=== PATIENT | female | born 2000 | race Caucasian/White ===

== ENCOUNTER → 2020-10-13 15:44 | Outpatient (CLI) | payer OTHER, SELFPAY ==
[2020-10-13 17:36] LABS: Hematocrit 38.6 % (36-46); Hemoglobin 12.8 g/dL (12.0-16.0); Mean Corpuscular HGB Conc 33.2 % (30-36); Mean Corpuscular Hemoglobin 28.7 PG (26-34); Mean Corpuscular Volume 86.5 fL (80-100); Platelet Count 223 X10^3/uL (150-400); Red Blood Cell Count 4.47 X10^6/uL (4.0-5.2); White Blood Cell Count 8.8 X10^3/uL (4.5-11.0)
[2020-10-13 18:05] LABS: Vitamin D 25 Hydroxy (D3) 38.3 ng/mL (30.0-100.0)
[2020-10-13 18:19] LABS: TSH w/ Reflex to FT4 0.92 uIU/mL (0.47-4.68)
== END ==
PROVIDERS: PCP Registered Nurse Diabetes Educator; Referring Provider Registered Nurse Diabetes Educator; Visit Provider Registered Nurse Diabetes Educator
DX: F32.9 Major depressive disorder, single episode, unspecified (principal); F41.9 Anxiety disorder, unspecified
CPT/HCPCS: 36415; 82306; 84443; 85027

== ENCOUNTER → 2021-05-28 17:08 | Outpatient (CLI) | payer OTHER, SELFPAY ==
[2021-05-28 20:09] LABS: HCG Quantitative /Beta subunit 33913 mIU/mL
== END ==
PROVIDERS: PCP Registered Nurse Diabetes Educator; Referring Provider Obstetrics & Gynecology; Visit Provider Obstetrics & Gynecology
DX: N91.2 Amenorrhea, unspecified (principal); Z97.5 Presence of (intrauterine) contraceptive device
CPT/HCPCS: 36415; 84702

== ENCOUNTER → 2021-06-05 12:38 | Outpatient (CLI) | payer OTHER, SELFPAY ==
--- NOTE | 2021-06-05 12:39 | DI.US.S_ITS ---
PROCEDURE: US OB <= 14 WEEKS FETUS INDICATIONS: Dating and Viability, IUD placement Check OUTSIDE/PRIOR DATING DATA: Last menstrual period (LMP): Not known LMP-based estimated date of delivery (CANELO): Not applicable First dating scan (date and location): June 05, 2021 Estimated date of delivery (CANELO) from first dating scan: 12/13/2021 The calculations are made using the ultrasound CANELO of December 13, 2021 TECHNIQUE: Real-time scanning was performed of the fetus and maternal pelvic organs, with image documentation. Endovaginal scanning was also performed to better visualize the fetus and maternal ovaries. COMPARISON: None. FINDINGS: Embryo: Single living intrauterine identified. crown-rump length measures 6.2 centimeters corresponding to ultrasound estimated gestational age of 12 weeks 5 days. Heart rate: 168 beats per minute. Maternal organs: Ovaries are sonographically normal. Intrauterine device not well visualized and cannot be definitively localized. IMPRESSION: 1. Single living intrauterine with ultrasound estimated gestational age of 12 weeks 5 days corresponding to ultrasound CANELO of December 13, 2021. 2. Maternal intrauterine device not well visualized and cannot be definitively localized. Dictated by: Diane Hutchins MD, PhD on 06/05/2021 at 17:29 Approved by: Diane Hutchins MD, PhD on 06/05/2021 at 17:31
== END ==
PROVIDERS: PCP Registered Nurse Diabetes Educator; Referring Provider Obstetrics & Gynecology; Visit Provider Obstetrics & Gynecology
DX: Z36.87 Encounter for antenatal screening for uncertain dates (principal); Z3A.12 12 weeks gestation of pregnancy; Z97.5 Presence of (intrauterine) contraceptive device
CPT/HCPCS: 76801; 76817

== ENCOUNTER → 2021-06-26 14:44 | Outpatient (CLI) | payer OTHER, SELFPAY ==
[2021-06-26 16:09] LABS: Add Manual Diff / Slide Review NO; Basophils Absolute Auto 0 /uL (0-100); Basophils Percent Auto 0.2 % (0-2); Eosinophils Absolute Auto 100 /uL (0-450); Eosinophils Percent Auto 0.5 % (2-4); Hematocrit 37.5 % (36-46); Hemoglobin 12.6 g/dL (12.0-16.0); Lymphocytes Absolute Auto 2200 /uL (1100-4500); Lymphocytes Percent Auto 20.4 % (25-40); Mean Corpuscular HGB Conc 33.7 % (30-36); Mean Corpuscular Hemoglobin 29.8 PG (26-34); Mean Corpuscular Volume 88.3 fL (80-100); Monocytes Absolute Auto 600 /uL (0-900); Monocytes Percent Auto 5.3 % (3-14); Neutrophils Absolute Auto 7800 /uL (1500-7000); Neutrophils Percent Auto 73.6 % (50-75); Platelet Count 184 X10^3/uL (150-400); Red Blood Cell Count 4.24 X10^6/uL (4.0-5.2); Red Cell Distribution Width 13.9 % (11.6-14.8); White Blood Cell Count 10.6 X10^3/uL (4.5-11.0)
[2021-06-26 16:47] LABS: Appearance Urine UA CLEAR; Bilirubin Urine UA NEGATIVE (NEGATIVE); Color Urine UA YELLOW; Glucose Urine UA NEGATIVE (Negative); Ketones Urine UA 1+ (NEGATIVE); Leukocyte Esterase Urine UA NEGATIVE (NEGATIVE); Nitrite Urine UA NEGATIVE (Negative); Occult Blood Urine UA NEGATIVE (Negative); Protein Urine UA NEGATIVE (Negative); Specific Gravity Urine UA 1.015 (1.000-1.035); Urobilinogen Urine UA 0.2 E.U./dL (0.2)
[2021-06-26 16:49] LABS: pH Urine UA 6.5 (4.5-8.0)
[2021-06-26 22:04] LABS: Hepatitis B Surface Antigen NEGATIVE s/c (NEGATIVE); Rubella Antibody IgG 30.6 IU/mL (>15)
[2021-06-26 22:25] LABS: HIV 1 & 2 Ab/Ag 4th Gen Combo NEGATIVE (NEGATIVE); Hep C Virus Ab w/Reflex Quant NEGATIVE s/c (NEGATIVE)
[2021-06-27 06:15] LABS: RPR Screen Non Reactive (Non Reactive)
[2021-06-27 08:20] LABS: Varicella IgG Antibody 784 index (Immune >165)
[2021-06-28 20:55] LABS: AFP, Serum 18.9 ng/mL (.); Calc Gestational Age Ultrasound (.); Estriol, Free 0.67 ng/mL (.); Inhibin A, Dimeric 44.19 pg/mL (.); Maternal Ethnicity Caucasian (.); Maternal Weight 183 lbs (.); Number of Fetuses No (.); OSBR Risk 1 IN 10000 (.); Results Report (.); Test Results *Screen Negative* (.); hCG, MoM 0.41 (.); hCG, Serum 16672 mIU/mL (.)
== END ==
PROVIDERS: PCP Registered Nurse Diabetes Educator; Referring Provider Obstetrics & Gynecology; Visit Provider Obstetrics & Gynecology
DX: Z34.82 Encounter for supervision of other normal pregnancy, second trimester (principal); Z3A.15 15 weeks gestation of pregnancy
CPT/HCPCS: 80055; 81003; 82105; 82677; 84702; 86336; 86787; 86803; 86850; 86900; 86901; 87077; 87086; 87147; 87389

== ENCOUNTER → 2021-08-03 11:51 | Outpatient (CLI) | payer OTHER, SELFPAY ==
--- NOTE | 2021-08-03 11:52 | DI.US.S_ITS ---
PROCEDURE: US OB >= 14 WEEKS FETUS INDICATIONS: ANATOMY OUTSIDE/PRIOR DATING DATA: Last menstrual period (LMP): Not available. LMP-based estimated date of delivery (CANELO): Not available. First dating scan (date and location): 06/05/2021 at . Estimated date of delivery (CANELO) from first dating scan: 12/16/2021. TECHNIQUE: Real-time scanning was performed of the fetus, with image documentation and biometric measurements. COMPARISON: [facility], , OB <= 14 WEEKS FETUS, 06/05/2021, 12:51. FINDINGS: General: A single living intrauterine gestation is present. Presentation: Breech. Placenta: Placental position is anterior , without previa. Amniotic fluid index: 17.0 cm, normal range is 5-24 cm. Single deepest vertical pocket is 6.0 cm. heart rate: 189 beats per minute. Maternal cervical canal: Cervical length was not measurable. Funneling of cervix. biometrics: Biparietal diameter: 21 weeks 4 days Head circumference: 21 weeks 6 days Abdominal circumference: 22 weeks 1 day Femur length: 20 weeks 1 day Clinically estimated gestational age: 21 weeks 1 day Composite gestational age from present scan: 21 weeks 3 days Estimated weight and percentile: 416 g; 55%. Anatomic survey: Neuro: Ventricles are non-dilated at less than 10 mm. Cisterna magna is normal at 3-11 mm. Cerebellum is normal in size and morphology. Nuchal skin fold: Normal at less than 6 mm between 14-21 weeks gestational age. Face: Nose and lips are normal. Facial profile not visualized. Spine: No evidence for spina bifida. Heart: 4-chambered heart is present, with normal ventricular outflow tracts. Diaphragm: Diaphragm is intact. Stomach: Left-sided stomach is present. Kidneys: No hydronephrosis. Normal is less than 5 mm in 2nd trimester, less than 7 mm in 3rd trimester. Cord: 3-vessel cord has orthotopic insertion. Bladder: Not well seen. Extremities: All 4 extremities identified. IMPRESSION: 1. A single living intrauterine gestation with appropriate interval growth. 2. facial profile and urinary bladder not well seen. Otherwise normal anatomic survey. 3. tachycardia. 4. Funneling of the cervix. The result was discussed with Dr. Gregorio. We strive to produce accurate, complete, and clear reports of imaging services. To assist us in improving patient care, this report was composed using standard report templates and voice recognition software. Therefore, it may contain abnormal punctuation, insertions and/or omissions. Occasional wrong-word or sound-alike substitutions may occur. Though we review the report and make efforts to correct it, we do recommend that the report be read carefully in proper context to recognize any text inaccuracies. Dictated by: Walter Zepeda M.D. on 08/03/2021 at 13:47 Approved by: Walter Zepeda M.D. on 08/03/2021 at 14:35
== END ==
PROVIDERS: PCP Registered Nurse Diabetes Educator; Referring Provider Obstetrics & Gynecology; Visit Provider Obstetrics & Gynecology
DX: O36.8320 Maternal care for abnormalities of the fetal heart rate or rhythm, second trimester, not applicable or unspecified (principal); Z3A.21 21 weeks gestation of pregnancy
CPT/HCPCS: 76811

== ENCOUNTER 2021-08-03 13:41 | Inpatient (IN) | payer OTHER, SELFPAY ==
[2021-08-03] MEDS: fentaNYL 100 MCG/2 ML INJ IV (14:30)
[2021-08-03] MEDS: OXYTOCIN PREMIX 30 UNIT/500 ML PLAST..BAG 999 UNIT IV (15:15)
[2021-08-03 15:31] LABS: Add Manual Diff / Slide Review NO; Basophils Absolute Auto 0 /uL (0-100); Basophils Percent Auto 0.1 % (0-2); Eosinophils Absolute Auto 0 /uL (0-450); Eosinophils Percent Auto 0.3 % (2-4); Hematocrit 34.2 % (36-46); Hemoglobin 11.5 g/dL (12.0-16.0); Lymphocytes Absolute Auto 1300 /uL (1100-4500); Lymphocytes Percent Auto 16.1 % (25-40); Mean Corpuscular HGB Conc 33.7 % (30-36); Mean Corpuscular Hemoglobin 29.9 PG (26-34); Mean Corpuscular Volume 88.5 fL (80-100); Monocytes Absolute Auto 100 /uL (0-900); Neutrophils Absolute Auto 6800 /uL (1500-7000); Neutrophils Percent Auto 82.5 % (50-75); Platelet Count 114 X10^3/uL (150-400); Red Blood Cell Count 3.87 X10^6/uL (4.0-5.2); Red Cell Distribution Width 13.9 % (11.6-14.8); White Blood Cell Count 8.2 X10^3/uL (4.5-11.0)
[2021-08-03 15:34] LABS: Alanine Aminotransferase 16 IU/L (<35); Albumin 3.6 g/dL (3.5-5.0); Albumin Globulin Ratio 1.1 (1.0-2.8); Alkaline Phosphatase 80 U/L (38-126); Aspartate Aminotransferase 33 IU/L (14-36); BUN Creatinine Ratio 7.7 (6-22); Bilirubin Total 0.4 mg/dL (0.2-1.3); Blood Urea Nitrogen 4 mg/dL (7-17); Calcium 8.1 mg/dL (8.4-10.2); Carbon Dioxide 21 mmol/L (22-32); Chloride 105 mmol/L (98-107); Estimated Glomerular Filt Rate > 60 mL/min (>60); Globulin 3.3 g/dL (1.7-4.1); Glucose 98 mg/dL (70-100); HEMOLYSIS 16 (0-50); Potassium 3.3 mmol/L (3.4-5.1); Sodium 135 mmol/L (137-145); Total Protein 6.9 g/dL (6.3-8.2)
[2021-08-03 15:50] LABS: COVID19 -Nasal RAPID Negative (Negative)
[2021-08-03] MEDS: SODIUM CHLORIDE 0.9% 2,544.66 ML 848.22 ML IV (16:00)
--- NOTE | 2021-08-03 16:08 | PM.OBHP.IH.1 ---
OB HPI Date/Time Date of admission: 08/03/21 Date Patient Seen: 08/03/21 Time Patient Seen: 13:45 History of Present Condition Chief complaint: Observation CANELO Calculator Estimated Delivery Date Method Current WG Current Estimate 12/13/21 Ultrasound #1 21w 1d Estimated Gestational Age (weeks): 21+1 : 3 Para: 2 care: good care, initiated at week # (12), number of visits (2) and pounds weight gain (12) Dating criteria OB: LMP confirmed by 1st trimester US Ultrasounds: normal 1st trimester US and normal mid trimester US Obstetrical complications: other (IUD in place at conception) Medical complications OB: none Preadmission Labs Last OB Lab Results: Blood Type O Negative 06/26/21 15:14 06/26/21 Antibody Screen Negative 06/26/21 15:14 06/26/21 Hematocrit 34.2 % (36-46) L 08/03/21 14:25 08/03/21 Hemoglobin 11.5 g/dL (12.0-16.0) L 08/03/21 14:25 08/03/21 Hepatitis B Surface Antigen Negative s/c (NEGATIVE) 06/26/21 15:14 06/26/21 Hepatitis C Antibody Negative s/c (NEGATIVE) 06/26/21 15:14 06/26/21 Rubella Antibody 30.6 IU/mL (>15) 06/26/21 15:14 06/26/21 Varicella-Zoster IgG Antibody 784 index (Immune >165) 06/26/21 15:14 06/26/21 -: Chlamydia screen: negative, Gonorrhea screen: negative and Urine: negative -: PAP smear: Normal Genetic Screens: Quad screen: Normal External Labs -: Urine: negative Prior (ies) Past Pregnancies Del. Date GA/Weeks Labor Lgth Wt Sex Route Outcome Anesthesia Place Delv Breastfeed Preg Comp Name 05/22/18 41 30 7 lb 2 oz Male vaginal vacuum live - full term epidural [place] no none [place] 06/09/20 41 20 7 lb 5 oz Male vaginal live - full term epidural [place] 1 mo none [place] Delivery Date: 06/09/20 Last Updated by: Regina Rivero R.N. Group B strep, moved to [place] at 6 wks PP, was difficult to breast feed Evaluation Evaluation Baseline heart rate: 145 Uterine Contraction Intensity: Moderate Dilation (cm): 6 Effacement (%): 100 Effacement: >/=80% Position of cervix: anterior Comments: Amniotic sac in the vagina, almost to the introitus [facility] Medical History (Updated 07/24/21 @ 16:05 by Shea Gregorio MD) Anxiety Depression Stomach pain Surgical History (Updated 06/25/21 @ 08:38 by Regina Rivero, RN) H/O endoscopy History of wisdom tooth extraction Family History (Updated 06/25/21 @ 08:41 by Regina Rivero, RN) Father Hypertension Unknown Diabetes mellitus Unknown No problems noted. Social History marital status: household members: spouse and children lives independently: Yes housing: house pets and animals: Yes (Dogs, aware of toxoplasmosis) education level: college occupational status: unemployed current occupational exposures/hazards: No special sammy needs: No seatbelt use: always water heater temp set < 120 deg: Yes working smoke detector in home: Yes fire extinguisher in home: Yes carbon monox detector in home: Yes firearms in home: No do you feel safe at home: Yes Smoking Status: Never smoker second hand exposure: No alcohol intake: former substance use type: does not use during the past year weight has: remained stable well-balanced diet: daily or most days daily servings fruits/ve-4 caffeine: Yes (200mg per day) Type(s) of exercise: walking and regular exercise duration: 15-30 minutes/day Meds Home Medications and Allergies Home Medications Medication Instructions Recorded Confirmed Type escitalopram oxalate 10 mg tablet 15 mg PO DAILY #135 tab 04/10/21 07/24/21 Rx (Lexapro) diphenhydramine 25 1 tab PO BEDTIME PRN 06/25/21 07/24/21 History mg-acetaminophen 500 mg tablet (Tylenol PM Extra Strength) prenat.vits,negni,ugd-ploy-gfxrz 1 tab PO DAILY 06/25/21 07/24/21 History Allergies Allergy/AdvReac Type Severity Reaction Status Date / Time No Known Drug Allergies Allergy Verified 07/24/21 15:39 OB Exam Narrative Exam Narrative: Generally: Moderate distress due to abdominal pain Lungs: CTA bilaterally CV: Tachycardic, reg rhythm. Abd: Tender to palpation Fundal height: at U EXt: No edema, 1+ DTR's Objective Labs Result Diagrams: 08/03/21 14:25 08/03/21 14:25 Labs: Laboratory Results - last 24 hr 08/03/21 08/03/21 08/03/21 14:25 14:25 14:25 WBC 8.2 RBC 3.87 L Hgb 11.5 L Hct 34.2 L MCV 88.5 MCH 29.9 MCHC 33.7 RDW 13.9 Plt Count 114 L Neut % (Auto) 82.5 H Lymph % (Auto) 16.1 L [place] % (Auto) 1.0 L Eos % (Auto) 0.3 L Baso % (Auto) 0.1 Neut # (Auto) 6800 Lymph # (Auto) 1300 [place] # (Auto) 100 Eos # (Auto) 0 Baso # (Auto) 0 Sodium 135 L Potassium 3.3 L Chloride 105 Carbon Dioxide 21 L BUN 4 L Creatinine 0.52 Estimated GFR > 60 BUN/Creatinine Ratio 7.7 Glucose 98 Calcium 8.1 L Total Bilirubin 0.4 AST 33 ALT 16 Alkaline Phosphatase 80 Total Protein 6.9 Albumin 3.6 Globulin 3.3 Albumin/Globulin Ratio 1.1 SARS-CoV-2 (PCR) Negative Assessment and Plan Assessment and Plan Assessment and Plan narrative: Assessment: 20-year-old 3 para 2 at 21-,1/7 weeks gestation Imminent delivery Plan: Fentanyl for pain management Time Spent with Patient Total time spent with greater than 50% in coordination of care (as documented) at patient's floor/unit and/or counseling patient:: 15-24 minutes
[2021-08-03] MEDS: CLINDAMYCIN 900 MG/50 ML PIGGYBACK 50 MG IV (16:12)
[2021-08-03] MEDS: IBUPROFEN 600 MG TABLET PO ×2 (16:14→17:11)
[2021-08-03] MEDS: ACETAMINOPHEN 325 MG TABLET 650 MG PO ×2 (16:15→17:11)
[2021-08-03 16:30] VITALS: PULSE 115; RESP 20; O2SAT 100
[2021-08-03] MEDS: NOREPINEPHRINE BITARTRATE/D5W 4 MG/250 ML PLAST..BAG 30 MG IV (16:40)
[2021-08-03] MEDS: CEFAZOLIN 2 GM/20 ML SYRINGE IV (16:43)
[2021-08-03 16:44] LABS: Add Manual Diff / Slide Review NO; Basophils Absolute Auto 0 /uL (0-100); Basophils Percent Auto 0.1 % (0-2); Eosinophils Absolute Auto 0 /uL (0-450); Eosinophils Percent Auto 0.1 % (2-4); Hematocrit 31.4 % (36-46); Hemoglobin 10.8 g/dL (12.0-16.0); Lymphocytes Absolute Auto 300 /uL (1100-4500); Mean Corpuscular HGB Conc 34.2 % (30-36); Mean Corpuscular Hemoglobin 30.1 PG (26-34); Mean Corpuscular Volume 87.9 fL (80-100); Monocytes Absolute Auto 0 /uL (0-900); Monocytes Percent Auto 0.6 % (3-14); Neutrophils Absolute Auto 4100 /uL (1500-7000); Neutrophils Percent Auto 93.2 % (50-75); Platelet Count 102 X10^3/uL (150-400); Red Blood Cell Count 3.57 X10^6/uL (4.0-5.2); Red Cell Distribution Width 13.7 % (11.6-14.8); White Blood Cell Count 4.4 X10^3/uL (4.5-11.0)
[2021-08-03 16:45] LABS: Appearance Urine UA CLOUDY; Bilirubin Urine UA NEGATIVE (NEGATIVE); Color Urine UA YELLOW; Glucose Urine UA NEGATIVE (Negative); Ketones Urine UA NEGATIVE (NEGATIVE); Leukocyte Esterase Urine UA 2+ (NEGATIVE); Nitrite Urine UA NEGATIVE (Negative); Occult Blood Urine UA 3+ (Negative); Protein Urine UA 3+ (Negative); Urobilinogen Urine UA 0.2 E.U./dL (0.2)
[2021-08-03 16:52] LABS: INR 1.2 (0.9-1.3); Prothrombin Time 12.8 SECONDS (10.1-12.7)
--- NOTE | 2021-08-03 16:53 | PM.OBPRVD ---
Events: Foul Smell Amniotic Fluid Labor & Delivery Delivery date: 08/03/21 Intrapartal Events: Febrile and Chorioamnionitis Cervical ripening method: none Induction method: none Delivery monitor: none Route of delivery: Episiotomy description: None L&D Laceration Description: None Estimated blood loss (mL): 250 Anesthesia Type: Other (IV fentanyl) Complications: None Baby 1: gender: Male Presentation: breech Placenta delivery description: Spontaneous Cord Vessel Description: 3 Vessels score (1 min): 0 score (5 min): 0 Narrative: Patient had a spontaneous rupture of membranes at 1448. With 4 contractions, a non-viable male infant delivered spontaneously over an intact perineum at 1459. Foul smelling amniotic fluid noted. Pitocin was given in the IV fluids. respirations visualized and no heart rate felt or heard. The placenta delivered intact with membranes attached at 3:10 p.m.. Fundus was massaged to firm. No lacerations noted. Estimated blood loss 250 cc. Mom is stable to recovery. Plan for aftercare: Routine care
[2021-08-03 16:55] LABS: PTT Partial Thromboplastin Tim 28 SECONDS (26.4-36.2)
[2021-08-03 16:57] LABS: pH Urine UA 7.5 (4.5-8.0)
[2021-08-03 16:58] LABS: Alanine Aminotransferase 14 IU/L (<35); Albumin 2.9 g/dL (3.5-5.0); Alkaline Phosphatase 79 U/L (38-126); Aspartate Aminotransferase 32 IU/L (14-36); BUN Creatinine Ratio 9.6 (6-22); Bilirubin Total 0.9 mg/dL (0.2-1.3); Blood Urea Nitrogen 5 mg/dL (7-17); Calcium 7.4 mg/dL (8.4-10.2); Carbon Dioxide 20 mmol/L (22-32); Chloride 107 mmol/L (98-107); Estimated Glomerular Filt Rate > 60 mL/min (>60); Glucose 93 mg/dL (70-100); Lactate (Lactic Acid) 3.4 mmol/L (0.7-2.1); Potassium 3.5 mmol/L (3.4-5.1); Sodium 136 mmol/L (137-145); Total Protein 5.9 g/dL (6.3-8.2)
[2021-08-03 17:00] LABS: Bacteria Urine Many (>30); Culture Indicated Urine Specimen Cultured; RBC Urine None Seen (0-5/HPF); WBC Urine >100/HPF (0-5/HPF)
--- NOTE | 2021-08-03 17:00 | PM.EVENT ---
Event Note Date Patient Seen: 08/03/21 Time Patient Seen: 16:30 Event Note (Rapid Response, Code, or fall): Called to patient's room for patient not feeling well and significant decrease in blood pressure to 60s over 40s. Temperature 102.8?. Pulse 126. Rapid response team called. Dr. Wing arrived from the emergency department and sepsis protocol started. Second IV line started. Normal saline started. Blood cultures obtained. IV Ancef 2 g and clindamycin 900 mg were given. Once sepsis protocol was initiated, Zosyn given. Anesthesia notified for central line. Levophed started IV at 8 micrograms/minute. This was decreased to 6 micrograms/minute with a map of 65. Portable x-ray ordered. EKG with sinus tachycardia. Portable chest x-ray was normal. A central line was placed by Anesthesia. Placement confirmed by chest x-ray. She has received a total of 2500 cc of fluid. A Starkey catheter was placed and initially was very bloody. The urine then turned clear and then pink. Most recent vitals heart rate 114. Pulse ox 100%. Blood pressure 92/57. Map 69 on 8 mcg per minute of Levophed. Patient is feeling much better. Transfer to MICU with MFM consult. Receiving physician Dr. Daysi Jim. MFM Consult: Dr. Melgar A total of 120min were spent doing intensive medicine.
[2021-08-03 17:10] LABS: HEMOLYSIS 79 (0-50)
[2021-08-03] MEDS: PIPERACILLIN/TAZO 4.5 GM in SODIUM CHLORIDE 0.9% 100 ML 200 ML IV (17:10)
--- NOTE | 2021-08-03 17:13 | DI.RAD.S_ITS ---
PROCEDURE: XR CHEST 1V INDICATIONS: Urgent TECHNIQUE: One view of the chest was acquired. COMPARISON: None. FINDINGS: Surgical changes and devices: None. Lungs and pleura: Lungs are clear. No pleural effusions or pneumothorax. Mediastinum: Mediastinal contours appear normal. Heart size is normal. Bones and chest wall: No suspicious bony lesions. Overlying soft tissues appear unremarkable. IMPRESSION: No acute cardiopulmonary findings Approved by: Deven Cage M.D. on 08/03/2021 at 17:08
[2021-08-03 17:14] LABS: Procalcitonin 10.3 ng/mL (<0.5)
[2021-08-03] MEDS: ONDANSETRON 4 MG/2 ML INJ IV (17:31)
[2021-08-03] MEDS: LACTATED RINGERS 1,000 ML 1000 ML IV (17:47)
--- NOTE | 2021-08-03 18:17 | DI.RAD.S_ITS ---
PROCEDURE: XR CHEST 1V INDICATIONS: PLACEMENT verification of central line TECHNIQUE: One view of the chest was acquired. COMPARISON: [facility], CR, XR CHEST 1V, 08/03/2021, 17:15. FINDINGS: Surgical changes and devices: Right IJ central venous line tip in the distal SVC. Lungs and pleura: Lungs are clear. No pleural effusions or pneumothorax. Mediastinum: Mediastinal contours appear normal. Heart size is normal. Bones and chest wall: No suspicious bony lesions. Overlying soft tissues appear unremarkable. IMPRESSION: Right IJ central venous line in good position without pneumothorax Approved by: Deven Cage M.D. on 08/03/2021 at 17:46
[2021-08-03 18:22] LABS: D Dimer > 5250 ng/mL (<230)
[2021-08-03] MEDS: OXYTOCIN PREMIX 30 UNIT/500 ML PLAST..BAG 50 UNIT IV (18:35)
[2021-08-03 18:40] LABS: Reflexed Lactate in 2 Hours Y
--- NOTE | 2021-08-03 18:44 | PM.PROC.1 ---
Procedures Date/Time Date of procedure: 08/03/21 Time of procedure: 18:01 Central Line Placement Time out performed: Yes Patient placed on monitor/pulse ox: Yes MD prep: mask, gown and gloves Central line prep: Chlorhexidine scrub and sterile drapes applied Local anesthesia used: lidocaine 1% (3ml) Ultrasound used for placement: Yes Central line lumen inserted: triple Post procedure: sutured in place, good blood return, all ports aspirated, flushed, capped and sterile dressing applied Post procedure x-ray: tip of catheter in good position Patient tolerated procedure: well and no complications Additional comments: 2mg midazolam given for procedural sedation, well tolerated
[2021-08-03 18:54] LABS: Platelet Count 99 X10^3/uL (150-400)
[2021-08-03 19:18] LABS: Lactate 2HR (Lactic Acid Rflx) 2.3 mmol/L (0.7-2.1)
[2021-08-04 10:15] LABS: Acinetobacter baumannii Not Detected (Not Detect); Candida albicans Not Detected (Not Detect); Candida glabrata Not Detected (Not Detect); Candida krusei Not Detected (Not Detect); Candida parapsilosis Not Detected (Not Detect); Candida tropicalis Not Detected (Not Detect); E. coli Not Detected (Not Detect); Enterobacter cloacae complex Not Detected (Not Detect); Enterobacteriaceae species Not Detected (Not Detect); Enterococcus species Not Detected (Not Detect); Haemophilus influenzae Not Detected (Not Detect); KPC (carbapenem-resist gene) Not Detected (Not Detect); Listeria monocytogenes Not Detected (Not Detect); Methicillin-resistant gene Not Detected (Not Detect); Neisseria meningitidis Not Detected (Not Detect); Proteus species Not Detected (Not Detect); Pseudomonas aeruginosa Not Detected (Not Detect); Serratia marcescens Not Detected (Not Detect); Staphylococcus species Not Detected (Not Detect); Streptococcus agalactiae (Gr B Detected (Not Detect); Streptococcus pneumonia Not Detected (Not Detect); Streptococcus pyogenes (Gr A) Not Detected (Not Detect); Streptococcus species Detected (Not Detect); Vancomycin-rest genes A/B Not Detected (Not Detect)
== END 2021-08-03 19:25 | disposition home or self-care (01) | DRG 805 ==
PROVIDERS: Admitting Provider Obstetrics & Gynecology; PCP Registered Nurse Diabetes Educator; Referring Provider Obstetrics & Gynecology; Visit Provider Obstetrics & Gynecology
DX: O36.4XX0 Maternal care for intrauterine death, not applicable or unspecified (principal); O41.1220 Chorioamnionitis, second trimester, not applicable or unspecified; Z37.1 Single stillbirth; Z3A.21 21 weeks gestation of pregnancy; I95.9 Hypotension, unspecified; O36.8320 Maternal care for abnormalities of the fetal heart rate or rhythm, second trimester, not applicable or unspecified
CPT/HCPCS: 36415; 59050; 59409; 71045; 76811; 80053; 81001; 83605; 84145; 85025; 85049; 85379; 85610; 85730; 86850; 86900; 86901; 87040; 87070; 87075; 87077; 87086; 87147; 87150; 87186; 87205; 87635; 93005; C9803; G0378; G0379; J0690; J2250; J2405; J2543; J2590; J3010

== ENCOUNTER → 2022-02-08 11:38 | Outpatient (CLI) | payer OTHER, SELFPAY ==
[2022-02-08 13:08] LABS: COVID19 -Nasal RAPID Negative (Negative)
== END ==
PROVIDERS: PCP Registered Nurse Diabetes Educator; Visit Provider Obstetrics & Gynecology
DX: Z20.822 Contact with and (suspected) exposure to COVID-19 (principal); Z01.812 Encounter for preprocedural laboratory examination
CPT/HCPCS: 87635

== ENCOUNTER 2022-02-11 09:56 | Day surgery (SDC) | payer OTHER, SELFPAY ==
--- NOTE | 2022-02-11 | PATH_ITS ---
[facility] Accession Number: [id number] . 01 Material submitted: . fallopian tube - BILATERAL FALLOPIAN TUBES . 01 Diagnosis: Bilateral Fallopian Tubes: Longer fimbriated fallopian tube, complete cross-sections; negative for atypia or malignancy. [place] fimbriated fallopian tube with oblique cross section with multiple paratubal cysts (up to 10 mm). Nonfimbriated segment of fallopian tube, complete cross-sections, with multiple paratubal cysts (up to 2 mm). MRV 02/13/2022 1645 Local . 01 Electronically signed: . Mihaela Cazares MD, Pathologist NPI- [id number] . 01 Gross description: . The specimen is received in formalin labeled with the patient's name and bilateral fallopian tubes and consists of two unoriented fimbriated fallopian tubes and a third nonfimbriated fragment. The longest fimbriated fallopian tube measures 6.2 x 0.7 cm and has congested smooth serosa with no cystic structures identified. Sectioning reveals an unremarkable stellate lumen. The shorter fallopian tube measures 3.8 x 0.9 cm and has congested smooth serosa with multiple cystic structures measuring up to 1.0 cm in greatest dimension, filled with clear serous fluid. Sectioning reveals an unremarkable stellate lumen. The nonfimbriated tubular fragment measures 3.2 x 0.5 cm and has congested smooth serosa with multiple cystic structures measuring up to 0.2 cm in greatest dimension filled with clear serous fluid. Sectioning reveals an unremarkable stellate lumen. Hypertrichologist sections are submitted as follows: . A1: Longer fallopian tube to include entire fimbriae and patient registration representative cross sections. A2: [place] fallopian tube to include entire fimbriae and patient registration representative cross sections. A3: Hypertrichologist nonfimbriated tubular fragment. ([id number]) /[facility] 02/12/2022 1719 Local . 01 Pathologist provided ICD-10: Z30.2 . 01 CPT . 749384 Specimen Comment: A courtesy copy of this report has been sent to [phone] Performed at: 01 [facility] [address] [place] [address], [place], [place] [id number] MD Jim Neville MD Phone: [phone]
[2022-02-11 10:30] VITALS: BP 122/77; PULSE 83; RESP 14; TEMP 37; O2SAT 98; BMI 28.5
[2022-02-11] MEDS: LACTATED RINGERS 1,000 ML 100 ML IV (10:51)
[2022-02-11 10:56] VITALS: BMI 28.5
--- NOTE | 2022-02-11 11:50 | PM.GYNOP.1 ---
Operative Date/Time/Diagnoses Date of procedure: 02/11/22 Time of procedure: 12:49 Pre-op diagnosis: Desires permanent sterilization Post-op diagnosis: same Procedure & Clinicians Procedure: Procedures Operation Date: 02/11/22 11:15 Actual Procedure Side Surgeon p Laparoscopic Salpingectomy Bilateral Shea Gregorio MD Indications: Desires permanent sterilization Surgeon: Shea Gregorio Anesthesia Type: General and Local Operative Notes Findings: 7 week size anteverted uterus Right tube with a paratubal cyst Normal left tube Normal ovaries Normal appendix Normal liver and gallbladder Closure Type: primary Specimen(s): left tube and right tube Estimated blood loss (mL): 5 Blood products transfused: none Procedure in detail: After informed consent was obtained, the patient was taken to the operating room where she was placed in the dorsal supine position. After adequate general endotracheal anesthesia was achieved, she was placed in the dorsal lithotomy position, and prepped and draped in the usual sterile fashion. A time-out was performed. A bivalve speculum was placed into the vagina and the anterior lip of the cervix was grasped with a single-tooth tenaculum. The cervical os was sequentially dilated until the Zumi uterine manipulator could pass easily into the endometrial cavity. The single-tooth tenaculum was removed from the anterior lip of the cervix. The bivalve speculum was removed from the vagina. Attention was then turned to the abdomen where 6 cc of 0.5% Marcaine with epinephrine were injected in the umbilical fold. A 5 mm incision was made. The Veress needle was placed into the peritoneal cavity, and its placement confirmed by aspiration and drop test. The abdominal cavity was insufflated with 3.3 L of CO2. The Veress needle was removed, and a 5 mm trocar was placed without difficulty. Two other incisions were made 4 cm lateral to the midline at the level of the umbilicus after 6 cc of 0.5% Marcaine with epinephrine were injected. Two 5 mm trocars were placed under direct visualization. The pelvis and abdomen were examined with findings noted above. The right tube was grasped with an atraumatic grasper. Using the power seal, the mesosalpinx was cauterized and cut all the way down to the cornua of the uterus. The tube was amputated at the cornua. The tube was removed through the right lateral trocar. All of this was repeated on the patient's left side. Hemostasis was achieved. The instruments were removed from the abdomen. The CO2 was allowed to escape. The trocars were removed. The incisions were repaired with 4-0 Monocryl in a subcuticular fashion. Steri-Strips and Allevyn dressings were placed. The Zumi uterine manipulator was removed from the uterus. Sponge, lap, and instrument counts were correct x2. The patient tolerated the procedure well, and was taken to PACU in stable condition. Complications: none Post-operative Condition: stable Disposition: PACU Plan for aftercare: Home after Recovery
--- NOTE | 2022-02-11 11:51 | P.HP_ITS ---
History of Present Illness History of Present Illness Date Patient Seen: 02/11/22 Time Patient Seen: 11:51 Chief complaint: [facility] Narrative: Patient is a 21-year-old 3 para 2 who desires permanent sterilization. She presents for a laparoscopic bilateral salpingectomy. Patient History Medical History (Updated 07/24/21 @ 16:05 by Shea Gregorio MD) Anxiety Depression Stomach pain Surgical History (Updated 06/25/21 @ 08:38 by Regina Rivero, RN) H/O endoscopy History of wisdom tooth extraction Family & Social History Family History (Updated 06/25/21 @ 08:41 by Regina Rivero, RN) Father Hypertension Unknown Diabetes mellitus Unknown No problems noted. Social History: household members spouse,children lives independently Yes Tobacco & Substance use: Smoking Status Never smoker alcohol intake former Substance Use Type does not use Meds Home Medications and Allergies Home Medications Medication Instructions Recorded Confirmed Type escitalopram oxalate 10 mg tablet 15 mg PO DAILY #135 tabs 04/10/21 02/11/22 Rx (Lexapro) Allergies Allergy/AdvReac Type Severity Reaction Status Date / Time No Known Drug Allergies Allergy Verified 02/11/22 10:50 Exam Vital Signs (past 8 hours): - 02/11/22 10:30 Temperature 98.6 F Pulse Rate 83 Respiratory Rate 14 Blood Pressure 122/77 Pulse Oximetry 98 Oxygen Delivery Method Room Air Oxygen Delivery Method Room Air Narrative Exam Narrative: HEENT: No thyromegaly, no anterior cervical or supraclavicular lymphadenopathy. Lungs:Clear to auscultation bilaterally, no wheezes. Cardiovascular: Regular rate and rhythm, no murmurs, rubs, or gallops. Abdomen: No scars. No hepatosplenomegaly. No masses palpable. External genitalia: Normal Vagina: Normal Cervix: Normal Bimanual exam: 7 Week size uterus. Mobile. No adnexal masses or tenderness. Extremities: No edema Assessment & Plan Assessment & Plan narrative: Assessment: 21-year-old 3 para 2 who desires permanent sterilization Plan: Laparoscopic bilateral salpingectomy The risks, benefits, and alternatives to the procedure were explained to the patient. The risks including bleeding, infection, injury to the bowel, bladder, or ureters. She understands these risks and agrees to proceed. A full par Q was held and consent form was signed. COVID-19 COVID-19 status: Negative Result date/Date tested (Pos, Neg/Pending): 02/08/22 Time Spent With Patient Time with patient: less than 30 minutes Critical Care time: I spent a total of [] minutes of critical care time on this patient's care today; this time is exclusive of procedural time.
--- NOTE | 2022-02-11 11:53 | PM.PREOP ---
Pre-operative Note COVID-19 COVID-19 status: Negative Result date/Date tested (Pos, Neg/Pending): 02/08/22 Criteria for continued procedure: Non-surgical alternatives not available or appropriate per current SOC Interval Note History & Physical reviewed/Exam performed by Physician: Yes Changes to H&P: No H&P completed within 30 days and has changed as indicated here:: 02/11/22
--- NOTE | 2022-02-11 12:11 | SUR.OPER ---
Lithotomy on padded OR bed, head on pillow, arms secured on padded arm boards at <90 degrees abduction. Legs secured in padded yellow fins stirrups.
[2022-02-11] MEDS: BUPIVACAINE 0.5% (PF) 30 ML, EPINEPHrine 0.15 MG INJ (12:40)
[2022-02-11 12:54] VITALS: BP 114/69; PULSE 97; RESP 16; TEMP 36.8; O2SAT 98
[2022-02-11 13:00] VITALS: BP 115/77; PULSE 86; RESP 16; O2SAT 98
[2022-02-11 13:03] VITALS: BP 118/67; PULSE 60; RESP 16; TEMP 36.8; O2SAT 98
[2022-02-11] MEDS: OXYCODONE/ACETAMINOPHEN 5/325 TABLET 1 TAB PO (13:12)
[2022-02-11 13:24] VITALS: BP 107/62; PULSE 93; RESP 16; TEMP 36.2; O2SAT 100
[2022-02-11 13:26] VITALS: BP 108/68; PULSE 73; RESP 16; TEMP 36.8; O2SAT 98
== END 2022-02-11 13:57 | disposition home or self-care (01) ==
PROVIDERS: PCP Registered Nurse Diabetes Educator; Referring Provider Obstetrics & Gynecology; Visit Provider Obstetrics & Gynecology
PROC: 0UT74ZZ Resection of Bilateral Fallopian Tubes, Percutaneous Endoscopic Approach (ICD-10-PCS; CPT 58661; principal; 2022-02-11 11:15)
DX: Z30.2 Encounter for sterilization (principal); N83.8 Other noninflammatory disorders of ovary, fallopian tube and broad ligament; F41.9 Anxiety disorder, unspecified; F32.A Depression, unspecified
CPT/HCPCS: 58661; J0171; J1100; J1885; J2250; J2405; J2704; J3010

== ENCOUNTER → 2022-07-16 17:43 | Outpatient (CLI) | payer OTHER, SELFPAY ==
[2022-07-16 17:56] LABS: Hematocrit 38.1 % (36-46); Hemoglobin 12.8 g/dL (12.0-16.0); Mean Corpuscular HGB Conc 33.6 % (30-36); Mean Corpuscular Hemoglobin 29.2 PG (26-34); Platelet Count 200 X10^3/uL (150-400); Red Blood Cell Count 4.37 X10^6/uL (4.0-5.2); Red Cell Distribution Width 13.8 % (11.6-14.8); White Blood Cell Count 7.9 X10^3/uL (4.5-11.0)
[2022-07-16 18:18] LABS: Alanine Aminotransferase 22 IU/L (<35); Albumin Globulin Ratio 1.1 (1.0-2.8); Alkaline Phosphatase 88 U/L (38-126); Aspartate Aminotransferase 28 IU/L (14-36); BUN Creatinine Ratio 19.4 (6-22); Blood Urea Nitrogen 13 mg/dL (7-17); Calcium 8.8 mg/dL (8.4-10.2); Carbon Dioxide 30 mmol/L (22-32); Chloride 102 mmol/L (98-107); Estimated Glomerular Filt Rate > 60 mL/min (>60); Globulin 3.7 g/dL (1.7-4.1); Glucose 88 mg/dL (70-100); HEMOLYSIS < 15 (0-50); Potassium 4.1 mmol/L (3.4-5.1); Sodium 137 mmol/L (137-145); Total Protein 7.7 g/dL (6.3-8.2)
[2022-07-16 18:23] LABS: Bilirubin Total < 0.1 mg/dL (0.2-1.3)
[2022-07-16 18:46] LABS: TSH w/ Reflex to FT4 0.48 uIU/mL (0.47-4.68)
== END ==
PROVIDERS: PCP Registered Nurse Diabetes Educator; Referring Provider Registered Nurse Diabetes Educator; Visit Provider Registered Nurse Diabetes Educator
DX: Z00.00 Encounter for general adult medical examination without abnormal findings (principal)
CPT/HCPCS: 36415; 80053; 84443; 85027

== ENCOUNTER → 2023-11-20 15:23 | Outpatient (CLI) | payer OTHER, SELFPAY ==
[2023-11-20 16:32] LABS: Alanine Aminotransferase 15 IU/L (<35); Albumin 4.4 g/dL (3.5-5.0); Albumin Globulin Ratio 1.3 (1.0-2.8); Alkaline Phosphatase 74 U/L (38-126); Aspartate Aminotransferase 23 IU/L (14-36); BUN Creatinine Ratio 10.9 (6-22); Bilirubin Total 0.5 mg/dL (0.2-1.3); Blood Urea Nitrogen 11 mg/dL (7-17); Calcium 9.3 mg/dL (8.4-10.2); Carbon Dioxide 23 mmol/L (22-32); Chloride 109 mmol/L (98-107); Estimated Glomerular Filt Rate > 60 mL/min (>60); Globulin 3.5 g/dL (1.7-4.1); Glucose 85 mg/dL (70-100); HEMOLYSIS < 15 (0-50); Potassium 3.6 mmol/L (3.4-5.1); Sodium 139 mmol/L (137-145); Total Protein 7.9 g/dL (6.3-8.2)
== END ==
PROVIDERS: PCP Registered Nurse Diabetes Educator; Referring Provider Registered Nurse Diabetes Educator; Visit Provider Registered Nurse Diabetes Educator
DX: L70.0 Acne vulgaris (principal); Z68.31 Body mass index [BMI] 31.0-31.9, adult; Z51.81 Encounter for therapeutic drug level monitoring
CPT/HCPCS: 36415; 80053

== ENCOUNTER → 2024-02-17 17:30 | Outpatient (CLI) | payer OTHER, SELFPAY ==
--- NOTE | 2024-02-17 17:32 | DI.RAD.S_ITS ---
PROCEDURE: XR HIP W PEL IF DONE KONSTANTIN MIN 4V INDICATIONS: eval bilat hip pain/lbp TECHNIQUE: AP pelvis with lateral view(s) of the bilateral hip(s). COMPARISON: None. FINDINGS: Bones: No fractures or dislocations. Pelvic ring appears intact. No suspicious bony lesions. Soft tissues: The visualized bowel gas pattern is normal. No suspicious soft tissue calcifications. IMPRESSION: No acute bony abnormality. No significant degenerative change. Dictated by: Reinaldo George M.D. on 02/18/2024 at 11:11 Approved by: Reinaldo George M.D. on 02/18/2024 at 11:12
--- NOTE | 2024-02-17 17:32 | DI.RAD.S_ITS ---
PROCEDURE: XR LUMBAR SPINE MIN 4V INDICATIONS: eval bilat hip pain/lbp TECHNIQUE: 5 views of the lumbar spine were acquired, including bilateral oblique views. COMPARISON: None. FINDINGS: Bones: 5 nonrib-bearing vertebrae are present. There is normal bony alignment. No vertebral body compression fractures. No suspicious bony lesions. Soft tissues: Overlying bowel gas pattern is normal. No suspicious soft tissue calcifications. Oblique images: No pars defects. IMPRESSION: No significant degenerative change or acute bony abnormality. Dictated by: Reinaldo George M.D. on 02/18/2024 at 11:12 Approved by: Reinaldo George M.D. on 02/18/2024 at 11:12
== END ==
PROVIDERS: PCP Registered Nurse Diabetes Educator; Referring Provider Registered Nurse Diabetes Educator; Visit Provider Registered Nurse Diabetes Educator
DX: M25.551 Pain in right hip (principal); M25.552 Pain in left hip; M54.50 Low back pain, unspecified
CPT/HCPCS: 72110; 73522

== ENCOUNTER → 2024-06-05 11:57 | Outpatient (CLI) | payer OTHER, SELFPAY ==
[2024-06-05 12:57] LABS: Hematocrit 40.6 % (36-46); Hemoglobin 13.4 g/dL (12.0-16.0); Mean Corpuscular HGB Conc 33.1 % (30-36); Mean Corpuscular Hemoglobin 29.8 PG (26-34); Mean Corpuscular Volume 90.1 fL (80-100); Platelet Count 198 X10^3/uL (150-400); Red Cell Distribution Width 12.7 % (11.6-14.8); White Blood Cell Count 6.5 X10^3/uL (4.5-11.0)
[2024-06-05 13:13] LABS: Alanine Aminotransferase 14 IU/L (<35); Albumin 4.8 g/dL (3.5-5.0); Albumin Globulin Ratio 1.7 (1.0-2.8); Alkaline Phosphatase 66 U/L (38-126); Aspartate Aminotransferase 24 IU/L (14-36); BUN Creatinine Ratio 12.5 (6-22); Bilirubin Total 0.7 mg/dL (0.2-1.3); Blood Urea Nitrogen 12 mg/dL (7-17); Calcium 9.9 mg/dL (8.4-10.2); Carbon Dioxide 25 mmol/L (22-32); Chloride 105 mmol/L (98-107); Cholesterol 173 mg/dL (140-199); Estimated Glomerular Filt Rate > 60 mL/min (>60); Globulin 2.9 g/dL (1.7-4.1); Glucose 86 mg/dL (70-100); HDL Cholesterol 50 mg/dL (40-60); HEMOLYSIS < 15 (0-50); LDL Cholesterol Calculated 105 mg/dL (<100); Potassium 4.4 mmol/L (3.4-5.1); Sodium 138 mmol/L (137-145); Total Protein 7.7 g/dL (6.3-8.2); Triglycerides 88 mg/dL (35-150)
[2024-06-05 13:43] LABS: TSH w/ Reflex to FT4 0.68 uIU/mL (0.47-4.68)
== END ==
LOC: LAB 11:58
PROVIDERS: PCP Registered Nurse Diabetes Educator; Referring Provider Registered Nurse Diabetes Educator; Visit Provider Registered Nurse Diabetes Educator
DX: Z00.00 Encounter for general adult medical examination without abnormal findings (principal); F41.9 Anxiety disorder, unspecified; F32.9 Major depressive disorder, single episode, unspecified; Z51.81 Encounter for therapeutic drug level monitoring
CPT/HCPCS: 36415; 80053; 80061; 84443; 85027